=== PATIENT | male | born 1945 | race Caucasian/White ===

== ENCOUNTER → 2016-12-31 | Outpatient (CLI) | payer MEDICARE, OTHER | END | disposition home or self-care (01) | LOC: RAD.S 09:48 | DX: Z48.812 Encounter for surgical aftercare following surgery on the circulatory system (principal); R09.89 Other specified symptoms and signs involving the circulatory and respiratory systems; Z98.890 Other specified postprocedural states ==

== ENCOUNTER 2017-01-14 06:51 | Day surgery (SDC) | payer MEDICARE, OTHER ==
[~2017-01-14] VITALS: Ht 182.9 cm; Wt 122.6 kg
--- NOTE | 2017-01-22 17:29 | CVR ---
ADMIT: 01/14/2017 RM/LOC: [facility] MR#: [id number] [place], [place] [id number] [address] [place] [address] Cardioversion Report SEX: M AGE: 71 : 1945 DATE: 01/14/2017 PROCEDURE: Elective cardioversion for postoperative atrial fibrillation. ANESTHESIA: IV propofol was administered and monitored by the Anesthesia Department. INDICATION: Deangelo said he just underwent bioprosthetic aortic valve replacement on 12/21/2016. He also has a history of abdominal aneurysm, which had an Endograft in June of 2016. He had intraoperative pulmonary vein isolation and his left atrial appendage was ligated. He had a history of persistent atrial fibrillation prior to his surgery. He was referred for elective cardioversion. His INRs have been therapeutic for the past 3-4 weeks. DESCRIPTION OF PROCEDURE: Informed consent was obtained. The defibrillator pads were placed in the anterior and posterior positions. After achieving adequate anesthesia, one biphasic defibrillation with 150 joules successfully restored sinus bradycardia. There were no immediate complications. RECOMMENDATIONS: He should continue his anticoagulation with Coumadin. We will continue his antiarrhythmic with sotalol. I would like him to have an EKG at Dr. Fallon's office next week and follow up with us as scheduled. Brandon Quintero MD/ hima JOB #: [id number] CC: Brandon Quintero, Attending Physician Kg Fallon, Family Physician
== END 2017-01-14 10:10 | disposition home or self-care (01) ==
LOC: SSS 06:51
PROC: 5A2204Z Restoration of Cardiac Rhythm, Single (ICD-10-PCS; principal; 2017-01-14)
DX: I48.1 Persistent atrial fibrillation (principal); I10 Essential (primary) hypertension; E78.5 Hyperlipidemia, unspecified; E11.9 Type 2 diabetes mellitus without complications; I73.9 Peripheral vascular disease, unspecified; J44.9 Chronic obstructive pulmonary disease, unspecified; F32.9 Major depressive disorder, single episode, unspecified; M19.90 Unspecified osteoarthritis, unspecified site; K21.9 Gastro-esophageal reflux disease without esophagitis; Z95.2 Presence of prosthetic heart valve; Z88.1 Allergy status to other antibiotic agents; Z88.2 Allergy status to sulfonamides; Z87.891 Personal history of nicotine dependence; Z96.651 Presence of right artificial knee joint; Z90.5 Acquired absence of kidney; Z98.890 Other specified postprocedural states

== ENCOUNTER 2017-03-22 07:57 | Day surgery (SDC) | payer MEDICARE, OTHER | END 2017-03-22 12:05 | disposition home or self-care (01) | DX: I48.1 Persistent atrial fibrillation (principal); I08.0 Rheumatic disorders of both mitral and aortic valves; I10 Essential (primary) hypertension; J44.9 Chronic obstructive pulmonary disease, unspecified; E78.4 Other hyperlipidemia; M19.90 Unspecified osteoarthritis, unspecified site; Z95.2 Presence of prosthetic heart valve; Z79.899 Other long term (current) drug therapy; Z79.82 Long term (current) use of aspirin; Z87.891 Personal history of nicotine dependence; Z88.2 Allergy status to sulfonamides; Z88.8 Allergy status to other drugs, medicaments and biological substances ==